=== PATIENT | male | born 1980 | race Hispanic/Latino ===

== ENCOUNTER 2020-10-03 20:33 | Emergency (ER) | payer OTHER ==
[2020-10-03] MEDS ORDERED: CLONIDINE HCL 0.1 MG TABLET ONE (20:51)
[2020-10-03] MEDS ORDERED: HYDROXYZINE HCL 25 MG TABLET ONE (21:47)
== END 2020-10-03 21:52 | disposition home or self-care (01) ==
LOC: EDH 20:33 → EEVIPCON 20:33 → EDH 21:52
DX: F41.9 Anxiety disorder, unspecified (principal); R03.0 Elevated blood-pressure reading, without diagnosis of hypertension; F32.9 Major depressive disorder, single episode, unspecified; Z72.0 Tobacco use